=== PATIENT | female | born 1985 | race Two or more races ===

== ENCOUNTER 2018-06-25 10:11 | Emergency (ER) | payer OTHER ==
--- NOTE | 2018-06-25 10:51 | ER ---
Nurse's Notes [facility] Name: Samantha Brown Age: 33 yrs Sex: Female : 1985 Arrival Date: 06/25/2018 Time: 10:16 Bed Treatment Private MD: None, None Diagnosis: Otalgia, bilateral Presentation: 06/25 10:27 Presenting complaint: Patient states: "I've had this cold for a long time, I thought I aj1 was getting better but now my ears are throbbing." Patient reports that she is currently 21 weeks . Reports bilateral ear pain, coughing. Denies fever. Transition of care: patient was not received from another setting of care. Onset of symptoms was June 25, 2018. Risk Assessment: Do you want to hurt yourself or someone else? Patient reports no desire to harm self or others. Initial Sepsis Screen: Does the patient meet any 2 criteria? No. Patient's initial sepsis screen is negative. Does the patient have a suspected source of infection? No. Patient's initial sepsis screen is negative. Care prior to arrival: None. 10:27 Method Of Arrival: Ambulatory aj1 10:27 Acuity: HOLLY 4 aj1 Triage Assessment: 10:29 General: Appears in no apparent distress. comfortable, Behavior is calm, cooperative, aj1 appropriate for age. Pain: Complains of pain in right ear and left ear Pain currently is 3 out of 10 on a pain scale. EENT: Reports bilateral ear pain that is worse when she bends over. Neuro: Level of Consciousness is awake, alert, obeys commands. Cardiovascular: Patient's skin is warm and dry. Respiratory: Airway is patent Respiratory effort is even, unlabored, Respiratory pattern is regular, symmetrical. 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 - Social history:: Smoking status: Patient/guardian denies using tobacco. - Ebola Screening: : Patient denies travel to an Ebola-affected area in the 21 days before illness onset. Screenin:00 Abuse screen: Denies threats or abuse. Nutritional screening: No deficits noted. aa5 Tuberculosis screening: No symptoms or risk factors identified. Fall Risk None identified. Assessment: 11:00 General: Appears comfortable, Behavior is calm, cooperative. Pain: Complains of pain in aa5 right ear and left ear. Neuro: Level of Consciousness is awake, alert, obeys commands, Oriented to person, place, time, situation. Cardiovascular: Heart tones S1 S2 present Rhythm is regular. Respiratory: Airway is patent Respiratory effort is even, unlabored, Respiratory pattern is regular, symmetrical, Breath sounds are clear bilaterally. GI: No signs and/or symptoms were reported involving the gastrointestinal system. : No signs and/or symptoms were reported regarding the genitourinary system. EENT: Reports pain in right ear and left ear. Derm: Skin is pink, warm \\T\\ dry. Musculoskeletal: Range of motion: intact in all extremities. 11:28 Reassessment: Patient is alert, oriented x 3, equal unlabored respirations, skin aa5 warm/dry/pink. Vital Signs: 10:29 BP 118 / 82; Pulse 104; Resp 20; Temp 98.3; Pulse Ox 100% on R/A; Weight 61.23 kg (R); aj1 Height 5 ft. 6 in. (167.64 cm) (R); Pain 3/10; 10:29 Body Mass Index 21.79 (61.23 kg, 167.64 cm) aj1 ED Course: 10:16 Patient arrived in ED. mr 10:16 None, None is Private Physician. mr 10:29 Triage completed. aj1 10:29 Arm band placed on Patient placed in an exam room. aj1 10:30 Avery Valderrama PA is PHCP. jr8 10:30 Reina Thakur MD is Attending Physician. jr8 11:00 Patient has correct armband on for positive identification. aa5 11:28 No provider procedures requiring assistance completed. Patient did not have IV access aa5 during this emergency room visit. Administered Medications: No medications were administered Outcome: 10:51 Discharge ordered by . jr8 11:28 Discharged to home ambulatory, with family. aa5 11:28 Condition: good 11:28 Discharge instructions given to patient, Instructed on discharge instructions, follow up and referral plans. medication usage, Demonstrated understanding of instructions, Prescriptions given X 1. 11:30 Patient left the ED. aa5 Signatures: Aicha Ortiz RN RN aj1 Terra Garcia mr Shy Oneal RN RN aa5 Avery Valderrama PA PA jr8
--- NOTE | 2018-06-25 10:52 | EDPHYS ---
Physician Documentation [facility] Name: Samantha Brown Age: 33 yrs Sex: Female : 1985 Arrival Date: 06/25/2018 Time: 10:16 Bed Treatment Private MD: None, None ED Physician Reina Thakur HPI: 06/25 10:48 This 33 yrs old Female presents to ER via Ambulatory with complaints of Ear Pain. jr8 10:48 The patient presents with pain. The complaints affect the right ear and left ear. jr8 Onset: The symptoms/episode began/occurred acutely, yesterday. Modifying factors: The symptoms are alleviated by nothing, the symptoms are aggravated by nothing. Associated signs and symptoms: The patient has no apparent associated signs or symptoms. Severity of symptoms: At their worst the symptoms were mild in the emergency department the symptoms are unchanged. The patient has not experienced similar symptoms in the past. The patient has not recently seen a physician. 10:48 Patient stated that she has had upper congestion for past couple of weeks. Had been jr8 getting better but now having bilateral ear pain . 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 - Social history:: Smoking status: Patient/guardian denies using tobacco. - Ebola Screening: : Patient denies travel to an Ebola-affected area in the 21 days before illness onset. ROS: 10:48 Eyes: Negative for injury, pain, redness, and discharge, Neck: Negative for injury, jr8 pain, and swelling, Cardiovascular: Negative for chest pain, palpitations, and edema, Respiratory: Negative for shortness of breath, cough, wheezing, and pleuritic chest pain, Abdomen/GI: Negative for abdominal pain, nausea, vomiting, diarrhea, and constipation, Back: Negative for injury and pain, MS/Extremity: Negative for injury and deformity, Skin: Negative for injury, rash, and discoloration, Neuro: Negative for headache, weakness, numbness, tingling, and seizure. 10:48 ENT: Positive for ear pain, Negative for drainage from ear(s), tinnitus, nasal discharge, rhinorrhea, sinus congestion, sinus pain, sore throat, difficulty swallowing, difficulty handling secretions. Exam: 10:48 Eyes: Pupils equal round and reactive to light, extra-ocular motions intact. Lids and jr8 lashes normal. Conjunctiva and sclera are non-icteric and not injected. Cornea within normal limits. Periorbital areas with no swelling, redness, or edema. ENT: Nares patent. No nasal discharge, no septal abnormalities noted. Tympanic membranes are normal and external auditory canals are clear. Oropharynx with no redness, swelling, or masses, exudates, or evidence of obstruction, uvula midline. Mucous membranes moist. Neck: Trachea midline, no thyromegaly or masses palpated, and no cervical lymphadenopathy. Supple, full range of motion without nuchal rigidity, or vertebral point tenderness. No Meningismus. Cardiovascular: Regular rate and rhythm with a normal S1 and S2. No gallops, murmurs, or rubs. Normal PMI, no JVD. No pulse deficits. Respiratory: Lungs have equal breath sounds bilaterally, clear to auscultation and percussion. No rales, rhonchi or wheezes noted. No increased work of breathing, no retractions or nasal flaring. Abdomen/GI: Soft, non-tender, with normal bowel sounds. No distension or tympany. No guarding or rebound. No evidence of tenderness throughout. Back: No spinal tenderness. No costovertebral tenderness. Full range of motion. Skin: Warm, dry with normal turgor. Normal color with no rashes, no lesions, and no evidence of cellulitis. MS/ Extremity: Pulses equal, no cyanosis. Neurovascular intact. Full, normal range of motion. Neuro: Awake and alert, GCS 15, oriented to person, place, time, and situation. Cranial nerves II-XII grossly intact. Motor strength 5/5 in all extremities. Sensory grossly intact. Cerebellar exam normal. Normal gait. Vital Signs: 10:29 BP 118 / 82; Pulse 104; Resp 20; Temp 98.3; Pulse Ox 100% on R/A; Weight 61.23 kg (R); aj1 Height 5 ft. 6 in. (167.64 cm) (R); Pain 3/10; 10:29 Body Mass Index 21.79 (61.23 kg, 167.64 cm) aj1 MDM: 10:30 Patient medically screened. jr8 10:48 Data reviewed: vital signs, nurses notes, and as a result, I will discharge patient. jr8 Data interpreted: Pulse oximetry: on room air is 100 %. Interpretation: normal. Counseling: I had a detailed discussion with the patient and/or guardian regarding: the historical points, exam findings, and any diagnostic results supporting the discharge/admit diagnosis, the need for outpatient follow up, a family practitioner, to return to the emergency department if symptoms worsen or persist or if there are any questions or concerns that arise at home. 10:52 ED course: Discussed with patient that ears are without acute finding. Where she points jr8 to the pain is near or at the eustachian tubes. more then likely eustachian tube dysfunction and will treat as such. To f/u with PCP in a few days. Patient good with this plan . Administered Medications: No medications were administered Disposition: 18:37 Co-signature as Attending Physician, Reina Thakur MD. ma2 Disposition: 06/25/18 10:51 Discharged to Home. Impression: Otalgia, bilateral. - Condition is Stable. - Discharge Instructions: Earache, Adult. - Prescriptions for Claritin- D 24 Hour 10-240 mg Oral Tablet Sustained Release 24 hr - take 1 tablet by ORAL route once daily As needed; 20 tablet. - Medication Reconciliation Form, Thank You Letter, Antibiotic Education, Prescription Opioid Use form. - Follow up: Private Physician; When: 1 week; Reason: Recheck today's complaints, Continuance of care, Re-evaluation by your physician. - Problem is new. - Symptoms have improved. Signatures: Aicha Ortiz RN RN aj1 Shy Oneal RN RN aa5 Avery Valderrama PA PA jr8 Reina Thakur MD MD ma2 Corrections: (The following items were deleted from the chart) 11:30 10:51 06/25/2018 10:51 Discharged to Home. Impression: Otalgia, bilateral. Condition is aa5 Stable. Forms are Medication Reconciliation Form, Thank You Letter, Antibiotic Education, Prescription Opioid Use. Follow up: Private Physician; When: 1 week; Reason: Recheck today's complaints, Continuance of care, Re-evaluation by your physician. Problem is new. Symptoms have improved. jr8
== END 2018-06-25 11:30 | disposition home or self-care (01) ==
LOC: ER 10:11
DX: H92.03 Otalgia, bilateral (principal)
CPT/HCPCS: 99282